=== PATIENT | female | born 1995 | race Caucasian/White ===

== ENCOUNTER 2022-12-23 21:13 | Emergency (ER) | payer MEDICAID ==
[~2022-12-23] VITALS: Ht 160 cm; Wt 75.7 kg
[2022-12-23 22:43] VITALS: BP 119/56
[2022-12-23] MEDS ORDERED: CHLO473L1 PO (23:04)
[2022-12-23] MEDS ORDERED: IBUP-2213 PO (23:04)
[2022-12-23] MEDS ORDERED: AMOX500C25 PO (23:04)
[2022-12-23] MEDS ORDERED: ACET-5629 PO (23:04)
--- NOTE | 2022-12-23 23:20 | NUR ---
Dr. Rogers examining patient.
[2022-12-23 23:52] VITALS: BP 121/56
--- NOTE | 2022-12-23 23:52 | NUR ---
Patient discharged with v/s stable. Written and verbal after care instructions given and explained. Patient alert, oriented and verbalized understanding of instructions. Ambulatory with steady gait. All questions addressed prior to discharge. ID band removed. Patient advised to follow up with PMD. Rx of Ibuprofen,Percocet, Amoxicillin and Chlorhexidine Gluconate given. Patient educated on indication of medication including possible reaction and side effects. Opportunity to ask questions provided and answered.
== END 2022-12-23 23:52 | disposition home or self-care (01) ==
LOC: MED 21:13
DX: K04.7 Periapical abscess without sinus (principal); K02.9 Dental caries, unspecified; H92.01 Otalgia, right ear; Z79.899 Other long term (current) drug therapy; Z79.891 Long term (current) use of opiate analgesic; Z79.2 Long term (current) use of antibiotics
CPT/HCPCS: 99283

== ENCOUNTER 2024-07-04 19:52 | Emergency (ER) | payer MEDICAID ==
[~2024-07-04] VITALS: Ht 160 cm; Wt 102.1 kg
[~2024-07-04 19:52] MED LIST: ACET-5629 PO; AMOX500C25 PO; CHLO473L1 PO; IBUP-2213 PO
[2024-07-04 20:04] VITALS: BP 127/65; PULSE 101; RESP 18; TEMP 98; O2SAT 98
[2024-07-04] MEDS ORDERED: CYCLOBENZAPRINE 10 MG TAB ONE (21:54)
[2024-07-04] MEDS ORDERED: KETOROLAC 30 MG/ML VIAL ONE (21:54)
[2024-07-04] MEDS: KETOROLAC 30 MG/ML VIAL IM ONE (22:39)
[2024-07-04] MEDS: CYCLOBENZAPRINE 10 MG TAB PO ONE (22:41)
[2024-07-04] MEDS ORDERED: ACET500T99 PO (22:47)
[2024-07-04] MEDS ORDERED: IBUP-2218 PO (22:47)
[2024-07-04] MEDS ORDERED: CYCL-711 PO (22:47)
[2024-07-04 22:55] VITALS: BP 127/65; PULSE 101; RESP 18; TEMP 98; O2SAT 98
== END 2024-07-04 22:55 | disposition home or self-care (01) ==
LOC: MED 19:52
DX: S76.911A Strain of unspecified muscles, fascia and tendons at thigh level, right thigh, initial encounter (principal); Z79.899 Other long term (current) drug therapy; X58.XXXA Exposure to other specified factors, initial encounter; Y92.89 Other specified places as the place of occurrence of the external cause; Y93.89 Activity, other specified; Y99.8 Other external cause status
CPT/HCPCS: 73552; 81025; 96372; 99283; J1885; Q0092